=== PATIENT | male | born 1950 | race Caucasian/White ===

== ENCOUNTER 2018-06-19 14:21 | Emergency (ER) | payer MEDICARE ==
[2018-06-19 15:07] VITALS: BP 124/82
[2018-06-19] MEDS ORDERED: Gelfoam 12-7 ADSORBABL SPONGE* 1 EA SPONGE TOPICAL ONE (15:14)
--- NOTE | 2018-06-19 15:55 | UC ---
Laceration HPI - HPI Summary HPI Summary: WAS USING HIS MANDOLIN TODAY WITHOUT THE GUARD AND SUSTAINED A SKIN AVULSION INJURY TO HIS DISTAL RIGHT THIRD FINGER. NOT UP-TO-DATE TETANUS AND IS DECLINING BOOSTER TODAY. - History Of Current Complaint Chief Complaint: UCLaceration Stated Complaint: FINGER LAC Time Seen by Provider: 06/19/18 15:09 Hx Obtained From: Patient Laceration Location: Finger - RIGHT 3RD Mechanism Of Injury: Sharp Trauma Onset/Duration: Sudden Onset, Lasting Hours, Still Present Severity: Moderate Pain Intensity: 1 Pain Scale Used: 0-10 Numeric Aggravating Factors: Movement Related History: Dominant Hand Right - Allergies/Home Medications Allergies/Adverse Reactions: Allergies Allergy/AdvReac Type Severity Reaction Status Date / Time bacitracin Allergy Rash Verified 06/19/18 15:07 [From Neosporin ([id number])] neomycin Allergy Rash Verified 06/19/18 15:07 [From Neosporin ([id number])] polymyxin B Allergy Rash Verified 06/19/18 15:07 [From Neosporin ([id number])] PMH/Surg Hx/FS Hx/Imm Hx Previously Healthy: Yes - Surgical History Surgical History: Yes Surgery Procedure, Year, and Place: abdominal hernia repair as a child - Family History Known Family History: Negative: Hypertension - Social History Alcohol Use: Weekly Substance Use Type: None Smoking Status (MU): Never Smoked Tobacco - Immunization History Most Recent Influenza Vaccination: never Most Recent Tetanus Shot: up to date Most Recent Pneumonia Vaccination: never Review of Systems Constitutional: Negative Skin: Other - SKIN AVULSION Respiratory: Negative Cardiovascular: Negative Gastrointestinal: Negative All Other Systems Reviewed And Are Negative: Yes Physical Exam Triage Information Reviewed: Yes Appearance: Well-Appearing, No Pain Distress, Well-Nourished Vital Signs: Initial Vital Signs Temp 98.0 F 06/19/18 14:54 Pulse 72 06/19/18 14:54 Resp 18 06/19/18 14:54 BP 124/82 06/19/18 14:54 Pulse Ox 98 06/19/18 14:54 Vital Signs Reviewed: Yes Eyes: Positive: Conjunctiva Clear ENT: Positive: Hearing grossly normal Neck: Positive: Supple Respiratory: Positive: No respiratory distress, No accessory muscle use Cardiovascular: Positive: Pulses Normal Abdomen Description: Positive: Soft Musculoskeletal: Positive: No Edema Neurological: Positive: Alert Psychological: Positive: Age Appropriate Behavior Skin: Positive: Other - 13MM DIAMETER SKIN AVULSION DISTAL RIGHT 3RD FINGER Laceration Course/Dx - Course/Dx Course Of Treatment: GELFOAM APPLIED. TUBE GAUZE BANDAGE. PT CONTINUES TO DECLINE TDAP BOOSTER. - Differential Dx - Laceration/Wound Provider Diagnoses: SKIN AVULSION Discharge - Sign-Out/Discharge Documenting (check all that apply): Patient Departure All imaging exams completed and their final reports reviewed: No Studies - Discharge Plan Condition: Stable Disposition: HOME Patient Education Materials: Skin Avulsion (ED) Referrals: No Primary Care Phys,NOPCP [Primary Care Provider] - Additional Instructions: KEEP DRESSINGS IN PLACE AND DRY FOR THE FIRST 24-48 HRS. THE GELFOAM WILL FALL OFF IN A FEW DAYS. THEN YOU WILL NEED TO CHANGE THE DRESSING DAILY AND NEEDED IF IT GETS SOILED OR WET. SEEK FOLLOW-UP IF YOU DEVELOP SPREADING REDNESS OF THE SKIN, PURULENT DRAINAGE, FEVER, INCREASED PAIN OR ANY OTHER CONCERNING SYMPTOMS. YOU HAVE DECLINED TDAP BOOSTER TODAY. FOLLOW-UP WITH YOUR PCP IF YOU CHANGE YOUR MIND. CALL THE NUMBER BELOW FOR ASSISTANCE IN ESTABLISHING WITH A PCP An additional resource available to assist in finding the appropriate physician for your health care needs is [facility] ([facility]). You may contact them by calling [phone]. - Billing Disposition and Condition Condition: STABLE Disposition: Home
== END 2018-06-19 15:42 | disposition home or self-care (01) ==
LOC: UCEAST 14:21
DX: S61.212A Laceration without foreign body of right middle finger without damage to nail, initial encounter (principal); W27.4XXA Contact with kitchen utensil, initial encounter; Y93.G1 Activity, food preparation and clean up; Y92.9 Unspecified place or not applicable; Z88.3 Allergy status to other anti-infective agents
CPT/HCPCS: 99212; A9270-GY; G0463